=== PATIENT | female | born 1955 | race Caucasian/White ===

== ENCOUNTER → 2016-06-01 | Outpatient (CLI) | payer BC ==
--- NOTE | 2016-06-01 11:52 | RADRPT ---
PROCEDURE: XR Chest. CLINICAL INDICATION: PNEUMONIA TECHNIQUE: PA and lateral views of the chest were obtained COMPARISON: None FINDINGS: The heart is within normal limits in size. There is no evidence of pulmonary vascular congestion zacarias ng consolidation pleural effusions and pneumothorax. IMPRESSION: No evidence of acute cardiopulmonary disease. RPTAT:AAJJ Physician Soni Date Time Electronically viewed and signed by Kristal Herron Physician on 06/01/2016 11:52 BM/
== END | disposition home or self-care (01) ==
LOC: RAD 10:47
DX: J18.9 Pneumonia, unspecified organism (principal)
CPT/HCPCS: 71020

== ENCOUNTER → 2016-06-08 | Outpatient (CLI) | payer BC ==
[2016-06-08 11:29] LABS: BASOPHIL # 0.1 10^3/ul (0.0-0.1); BASOPHILS % 0.9 % (0.0-2.0); CONDITION 1; EOSINOPHILS # 0.1 10^3/ul (0.0-0.5); EOSINOPHILS % 1.5 % (0.0-7.0); HEMATOCRIT 39.3 % (37.0-47.0); HEMOGLOBIN 13.3 g/dl (12.0-16.0); LYMPHOCYTES # 2.5 10^3/ul (0.8-2.9); LYMPHOCYTES % 44.4 % (15.0-51.0); MEAN CORPUSCULAR HEMOGLOBIN 29.4 pg (29.0-33.0); MEAN CORPUSCULAR HGB CONC 33.9 g/dl (32.0-37.0); MEAN CORPUSCULAR VOLUME 86.7 fl (82.0-101.0); MEAN PLATELET VOLUME 7.3 fl (7.4-10.4); MONOCYTE # 0.3 10^3/ul (0.3-0.9); MONOCYTES % 5.6 % (0.0-11.0); NEUTROPHIL # 2.7 10^3/ul (1.6-7.5); NEUTROPHILS % 47.6 % (39.0-77.0); PLATELET COUNT 365 10^3/UL (140-440); RED BLOOD COUNT 4.53 10^6/ul (4.20-5.40); RED CELL DISTRIBUTION WIDTH 13.5 % (11.5-14.5); UNCORRECTED WBC 5.7 10^3/ul (4.8-10.8); WHITE BLOOD COUNT 5.7 10^3/ul (4.8-10.8)
[2016-06-08 11:46] LABS: ALBUMIN 4.3 g/dl (3.3-4.9)
[2016-06-08 11:48] LABS: BILIRUBIN,INDIRECT 0.3 mg/dl (0-1.1); BILIRUBIN,TOTAL 0.3 mg/dl (0.2-1.3); CREATININE 0.75 mg/dl (0.44-1.00)
[2016-06-08 11:49] LABS: TOTAL PROTEIN 7.7 g/dl (6.1-8.1)
[2016-06-08 11:50] LABS: CALCIUM 9.7 mg/dl (8.4-10.2)
[2016-06-08 11:52] LABS: ALBUMIN/GLOBULIN RATIO 1.26
[2016-06-08 14:31] LABS: THYROID STIMULATING HORMONE 1.05 MIU/L (0.465-4.680)
== END | disposition home or self-care (01) ==
LOC: LAB 11:05
DX: R05 Cough (principal); R53.83 Other fatigue; D64.9 Anemia, unspecified
CPT/HCPCS: 80053; 84443; 85025; 85651